=== PATIENT | female | born 1985 | race African-American/Black ===

== ENCOUNTER 2019-08-17 10:16 | Observation (INO) ==
[2019-08-17] MEDS ORDERED: LACTATED RINGER'S 1,000 ML IV PRN ×2 (10:57→13:55)
[2019-08-17 11:33] LABS: Basophils # (auto) 0.01 K/uL (0-0.2); Basophils % (auto) 0.1 %; Eosinophils # (auto) 0.05 K/uL (0-0.5); Eosinophils % (auto) 0.6 %; Hematocrit (blood only) 31.4 % (37-47); Hemoglobin 10.5 g/dL (12.0-16.0); Immature Granulocytes # (auto) 0.03 K/uL (0.00-0.02); Immature Granulocytes % (auto) 0.4 %; Lymphocytes # (auto) 1.34 K/uL (1.2-3.4); Lymphocytes % (auto) 16.5 %; Mean Corpuscular Hemoglobin 27.4 pg (25-34); Monocytes % (auto) 6.1 %; Neutrophils # (auto) 6.21 K/uL (1.4-6.5); Neutrophils % (auto) 76.3 %; Platelet Count 311 K/uL (130-400); RDW Coefficient of Variation 14.8 % (11.5-14.5); RDW Standard Deviation 44.3 fL (36.4-46.3); Red Blood Count 3.83 M/uL (4.2-5.4); White Blood Count 8.14 K/uL (4.8-10.8)
[2019-08-17 11:53] LABS: Creatinine Clr Calc Pharmacy 125.2 ml/min; Est GFR (African American) 138.2; Est GFR (Non-African American) 119.3
[2019-08-17 12:02] LABS: Mean Corpuscular Hgb Conc 33.4 g/dL (32-36)
[2019-08-17 12:39] LABS: Appearance Urine Clear (Clear); Bilirubin Urine Negative (Negative); Blood Urine Negative (Negative); Color Urine Yellow; Glucose Urine UA Negative (Negative); Ketones Urine Negative (Negative); Leukocyte Esterase Urine Negative (Negative); Nitrite Urine Negative (Negative); Protein Urine Negative (Negative); Specific Gravity Urine 1.008 (1.000-1.030); Urobilinogen Urine Negative (Negative)
[2019-08-17 12:58] LABS: Creatinine Urine Random 67.5 mg/dl; Protein Creatinine Ratio Urine 0.2 (0-0.2)
[2019-08-17] MEDS ORDERED: ONDANSETRON INJ 2 MG/ML 2 ML VIAL IV PRN (13:55)
[2019-08-17] MEDS ORDERED: BUTORPHANOL TARTRATE 1 MG/ML VIAL IV PRN (14:10)
[2019-08-17] MEDS ORDERED: OXYCODONE/ACETAMINOPHEN 5mg/325mg TAB PO PRN (14:18)
--- NOTE | 2019-08-17 14:27 | History & Physical Report ---
Date of Service August 17, 2019 Assessment & Plan (1) Elevated blood pressure affecting in second trimester, antepartum: initial PIH labs are all normal urine protein/creatinine ratio is 0.2 discussed with MFM fellow at [facility] , we will do serial BP's & PIH labs start 24 hr urine for total protein & creatinine clearance. (2) Premature uterine contractions in second trimester, antepartum: FFN is negative having lower back pain most likely from degenerating fibroids will treat with Tylenol, percocet & IV stadol. History of Present Illness Chief Complaint: Patient is a 34 yo female EDC 11/16/19 who presents to L&D with a 24 hour history of lower back pain & mild cramping in lower abdomen. So far her has been complicated by SGA documented on ultrsound at 25 weeks with EFW & AC at 2%tile. She also has multiple fibroids, the largest 2 are 13cm in posterior THIERRY and a 9 cm fibroid on the posterior fundus. She denies any bleeding or vaginal discharge changes. no urinary symptoms as well. no fever or chills. Upon evaluation in L&D, her BP's are consistently elevated in 140-150/90's. protein is trace. She denies any PIH symptoms. BP's have been 100-120/60-70 in the office. Primary Care Provider: Kristie Freedman Allergies Allergy/AdvReac Type Severity Reaction Status Date / Time corn Allergy Severe difficultly Verified 08/07/19 11:02 breathing and rash clindamycin Allergy Unknown Hives Verified 08/07/19 11:02 doxycycline Allergy Unknown Hives Verified 08/07/19 11:02 montelukast Allergy Unknown Rash Verified 08/07/19 11:02 levofloxacin [From Levaquin] Allergy skin Verified 08/07/19 11:02 burning Sulfa (Sulfonamide Allergy skin Verified 08/07/19 11:02 Antibiotics) burning Home Medications Home Medications Medication Instructions Recorded Confirmed Type doxylamine succinate 25 mg tablet 12.5 mg PO HS PRN tab 08/05/19 08/17/19 History pyridoxine (vitamin B6) 100 mg 100 mg PO BID PRN tab 08/05/19 08/17/19 History tablet ferrous sulfate 325 mg PO DAILY 08/17/19 08/17/19 History levalbuterol tartrate [Xopenex HFA] 2 inh INHALATION PRN 08/17/19 History vit-iron fum-folic ac 1 tab PO DAILY 08/17/19 08/17/19 History [ Vitamin] Patient History Medical History (Updated 08/17/19 @ 14:41 by Cortney Sim MD, FACOG) Varicella Surgical History (Updated 07/30/19 @ 14:21 by Nyasia Romero) S/P sinus surgery S/P wisdom tooth extraction Family History (Updated 07/30/19 @ 14:23 by Nyasia Romero) Grandmother (Maternal) Diabetes Father Hypertension Mother Hypercholesteremia Thyroid disease Fibroid Grandmother (Paternal) Thyroid disease Aunt Fibroid Sister Fibroid Social History (Updated 07/30/19 @ 14:24 by Nyasia Romero) Preferred Language: Guamanian Communication Ability: Effective Beliefs That Will Affect Care: None marital status: marital status details: Rachel Cazares [phone]) [phone] Current Living Situation: Spouse current occupational status: employed current occupation: Professor @ [employer] Other Information That Helps Us Care for You: No Feels Safe at Home: Yes Safety Concerns: Feels Safe At This Time Smoking Status: Never smoker Do You Dip or Chew Tobacco: No ; Hx Alcohol Use: No Hx Substance Use: No Review of Systems All systems reviewed & are unremarkable except as noted in HPI & below Physical Exam Constitutional: WD/WN, vitals as above Respiratory: normal respiratory effort, lungs clear to auscultation Cardiovascular: RRR, no murmur, no edema Gastrointestinal (Abdomen): Inspection/Auscultation: abdomen normal to inspection tender fibroid on right anterior fundus, no epigastric or RUQ tenderness Psychiatric: A+Ox3, euthymic affect Genitourinary: normal external appearance; no CVA tenderness Speculum/Bimanual Exam: normal appearance of the vagina and normal appearance of the cervix OB Exam Abdomen: + fundal height (appropriate for 26 weeks gestat ion) and + irregular contractions (mild irregular contractions) Manual OB Exam: + cervical dilation (closed), + cervical effacement (long) and + station high OB Exam Monitor Tracing: + external FHT monitor used and + external uterine monitor used cervix is long & closed and anteriorly displaced to under the pubic bone by a large posterior fibroid. Results & Data Vital Signs (Past 12 Hours) Vital Signs Temp Pulse Resp BP 08/17/19 13:13 73 152/95 H 08/17/19 12:08 74 147/101 H 08/17/19 11:58 68 149/95 H 08/17/19 11:38 68 149/97 H 08/17/19 11:28 69 152/97 H 08/17/19 11:18 71 152/99 H 08/17/19 11:08 80 136/98 08/17/19 10:48 80 144/96 H 08/17/19 10:37 75 140/91 08/17/19 10:30 97.9 F 20 Code Status & VTE Plan VTE Prophylaxis Plan VTE Prophylaxis will be ordered: No
[2019-08-17] MEDS: ACETAMINOPHEN 325 MG TAB PO PRN (14:36)
[2019-08-17 17:09] LABS: Basophils # (auto) 0.01 K/uL (0-0.2); Basophils % (auto) 0.1 %; Eosinophils # (auto) 0.06 K/uL (0-0.5); Eosinophils % (auto) 0.7 %; Hematocrit (blood only) 32.3 % (37-47); Immature Granulocytes # (auto) 0.02 K/uL (0.00-0.02); Immature Granulocytes % (auto) 0.2 %; Lymphocytes % (auto) 15.8 %; Mean Corpuscular Hgb Conc 34.1 g/dL (32-36); Mean Corpuscular Volume 82.2 fL (80-100); Mean Platelet Volume 10.3 fL (7.4-10.4); Monocytes # (auto) 0.58 K/uL (0.11-0.59); Monocytes % (auto) 6.5 %; Neutrophils # (auto) 6.81 K/uL (1.4-6.5); Neutrophils % (auto) 76.7 %; Platelet Count 317 K/uL (130-400); RDW Coefficient of Variation 14.9 % (11.5-14.5); RDW Standard Deviation 44.7 fL (36.4-46.3); Red Blood Count 3.93 M/uL (4.2-5.4); White Blood Count 8.88 K/uL (4.8-10.8)
[2019-08-17 17:20] LABS: INR 0.9 (0.9-1.1); Partial Thromboplastin Ratio 1.1; Partial Thromboplastin Time 28.6 Seconds (21.0-31.0); Prothrombin Time 9.3 Seconds (9.0-12.0)
[2019-08-17] MEDS: OXYCODONE HCL IR 5 MG TAB (IMMEDIATE RELEASE) PO PRN (18:16)
[2019-08-17 23:11] LABS: Basophils # (auto) 0.02 K/uL (0-0.2); Basophils % (auto) 0.2 %; Eosinophils # (auto) 0.08 K/uL (0-0.5); Eosinophils % (auto) 0.8 %; Hematocrit (blood only) 30.6 % (37-47); Hemoglobin 10.4 g/dL (12.0-16.0); Immature Granulocytes # (auto) 0.03 K/uL (0.00-0.02); Immature Granulocytes % (auto) 0.3 %; Lymphocytes % (auto) 15.5 %; Mean Corpuscular Hemoglobin 27.7 pg (25-34); Mean Corpuscular Volume 81.4 fL (80-100); Monocytes # (auto) 0.56 K/uL (0.11-0.59); Monocytes % (auto) 5.4 %; Neutrophils # (auto) 8.02 K/uL (1.4-6.5); Neutrophils % (auto) 77.8 %; Platelet Count 313 K/uL (130-400); RDW Coefficient of Variation 14.9 % (11.5-14.5); RDW Standard Deviation 44.2 fL (36.4-46.3); Red Blood Count 3.76 M/uL (4.2-5.4); White Blood Count 10.31 K/uL (4.8-10.8)
[2019-08-17] MEDS ORDERED: LEVALBUTEROL TARTRATE 15 GM HFA.AER.AD INH PRN (23:26)
[2019-08-17 23:28] LABS: Creatinine Clr Calc Pharmacy 118.9 ml/min; Est GFR (African American) 135.9; Est GFR (Non-African American) 117.3
[2019-08-18] MEDS: OXYCODONE HCL IR 5 MG TAB (IMMEDIATE RELEASE) PO PRN ×3 (00:03→06:38)
[2019-08-18] MEDS: ACETAMINOPHEN 325 MG TAB PO PRN ×2 (03:38→11:37)
[2019-08-18 06:27] LABS: Eosinophils # (auto) 0.07 K/uL (0-0.5); Eosinophils % (auto) 0.8 %; Hematocrit (blood only) 32.8 % (37-47); Hemoglobin 10.9 g/dL (12.0-16.0); Immature Granulocytes # (auto) 0.02 K/uL (0.00-0.02); Immature Granulocytes % (auto) 0.2 %; Lymphocytes # (auto) 1.48 K/uL (1.2-3.4); Lymphocytes % (auto) 16.3 %; Mean Corpuscular Hemoglobin 27.6 pg (25-34); Mean Corpuscular Hgb Conc 33.2 g/dL (32-36); Mean Platelet Volume 10.7 fL (7.4-10.4); Monocytes # (auto) 0.61 K/uL (0.11-0.59); Monocytes % (auto) 6.7 %; Neutrophils # (auto) 6.91 K/uL (1.4-6.5); Platelet Count 327 K/uL (130-400); RDW Coefficient of Variation 14.9 % (11.5-14.5); RDW Standard Deviation 45.1 fL (36.4-46.3); Red Blood Count 3.95 M/uL (4.2-5.4); White Blood Count 9.09 K/uL (4.8-10.8)
[2019-08-18 07:07] LABS: Creatinine Clr Calc Pharmacy 125.2 ml/min; Est GFR (African American) 138.2; Est GFR (Non-African American) 119.3
--- NOTE | 2019-08-18 08:53 | Obstetrical Progress Note ---
Date of Service August 18, 2019 Assessment & Plan (1) Premature uterine contractions in second trimester, antepartum: contractions have become only occasional now. will continue to monitor Present on Admission?: Yes (2) Elevated blood pressure affecting in second trimester, antepartum: BP has been occasionally above 150/90 but corresponds to episodes of pain. percocet is working well for the pain serial PIH labs have all been normal waiting on 24 hour urine collection whivh will be done at noon today. Present on Admission?: Yes Subjective Pain has been well controlled with percocet not feeling contractions very often now. No change in discharge no bleeding. baby very active. No PIH symptoms. Review of Systems Review of Systems: All systems reviewed & are unremarkable except as noted in HPI & below Physical Exam Gastrointestinal (Abdomen): normal bowel sounds, soft, nontender, no hepatosplenomegaly Psychiatric: A+Ox3, euthymic affect Genitourinary: OB Exam Monitor Tracing: + external FHT monitor used, + external uterine monitor used, + category I and + normal FHT variability tender at right fundus over 3cm fibroid. Results & Data Vital Signs (Past 12 Hours) Vital Signs Temp Pulse Resp BP 08/18/19 07:33 63 140/91 08/18/19 07:15 69 185/101 H 08/18/19 07:10 98.2 F 20 08/18/19 06:02 74 132/81 08/18/19 03:57 79 157/91 H 08/18/19 03:29 81 161/95 H 08/18/19 03:12 73 158/97 H 08/18/19 03:10 98.6 F 16 08/18/19 03:08 78 165/97 H 08/18/19 00:59 88 144/84 H 08/17/19 23:06 83 158/94 H 08/17/19 23:00 99.7 F H 16 PG Care Time/CCT Total # of Minutes Spent Total Time Spent with Patient: Total time spent is greater than 50% in coordination of care (as documented) at patient's floor/unit and/or counseling patient:
[2019-08-18] MEDS ORDERED: PRENATAL VITAMIN 1 TAB PO SCH (09:00)
[2019-08-18] MEDS ORDERED: FERROUS SULFATE 325 MG TAB PO SCH (09:00)
--- NOTE | 2019-08-18 11:18 | Obstetrical Progress Note ---
Date of Service August 18, 2019 Assessment & Plan (1) Premature uterine contractions in second trimester, antepartum: No evidence of PTL per Dr. Dobbs's exams. Patient now more comfortable / less contractions so exam not repeated at this time. (2) Elevated blood pressure affecting in second trimester, antepartum: Patient has evidence of gestational hypertension, and several of her measured BP values are in the severe range. This was previously discussed with MFM by Dr. Dobbs and my understanding from Dr. Dobbs is the BP was felt to be elevated due to pain, therefore not necessarily managed as gHTN. The plan in place and signed out to me was that if this patient's noon labs remain reassuring, the patient would be managed for her elevated BP via close outpatient follow up for BP checks, with percocet for home pain management. At this time the patient is comfortable but continues to have BP values at or very near severe range. Her labs have thus far not shown evidence of preeclampsia but there is a 24hr urine collection and additional serum labs planned for noon today. I do note the fetus being IUGR (MFM consult was already scheduled for this reason in early August) as well as the large fibroids which were previously suspected as the sole cause of IUGR. I am concerned for the possibility that this patient has true gHTN, possibly severe, possibly impacting her growth, and that her elevated BP cannot entirely be attributed to pain at this point. It certainly represents a significant change from her prior BP in the office. Once additional noontime information is resulted I plan to discuss again with [place]FM [place] [facility] [place] deciding on her disposition and care plan. (3) Advanced maternal age, primigravida: Following appropriate testing protocol. (4) Uterine fibroids affecting : Large fibroids including posterior THIERRY and fundal. These are believed to be the cause of her pain, as they are large enough to have a high likelihood of degeneration, and they are tender on palpation per Dr. Dobbs's earlier exams. The pain is now well managed via percocet. Given the gestational age we cannot use NSAIDs and patient is aware that pain management options are limited. She is also aware the location and size of fibroids may well preclude a vaginal delivery. Subjective I met with the patient upon assuming her care from Dr. Dobbs, approximately 10am. The patient was sitting up, on the phone (making appointment for care f/u later this week, actually) and was socializing with her and a female visitor. She was smiling, speaking fluidly, and in no evident distress. After she completed her phone call she denied any MASON, RUQ pain, vision change or edema. She states her fibroid pain is now well controlled by percocet. She feels good FM and no contractions, LOF or VB. Physical Exam Physical Exam: Gen: NAD Cor: RRR Lungs: breathing is regular and nonlabored Abd: Gravid, nontender at this time. Patient points out the location of her fundal fibroid where pain was previously present. Cvx: deferred at this time Ext: without edema. DTR 2+. Results & Data Vital Signs (Past 12 Hours) Vital Signs Temp Pulse Resp BP 08/18/19 10:35 82 159/103 H 08/18/19 07:33 63 140/91 08/18/19 07:15 69 185/101 H 08/18/19 07:10 98.2 F 20 08/18/19 06:02 74 132/81 08/18/19 03:57 79 157/91 H 08/18/19 03:29 81 161/95 H 08/18/19 03:12 73 158/97 H 08/18/19 03:10 98.6 F 16 08/18/19 03:08 78 165/97 H 08/18/19 00:59 88 144/84 H 08/17/19 23:06 83 158/94 H 08/17/19 23:00 99.7 F H 16 Laboratory Results Laboratory Results - last 24 hr 08/17/19 08/17/19 08/17/19 11:20 11:20 12:25 WBC 8.14 RBC 3.83 L Hgb 10.5 L Hct 31.4 L MCV 82.0 MCH 27.4 MCHC 33.4 RDW Std Deviation 44.3 RDW Coeff of Diamond 14.8 H Plt Count 311 MPV 10.0 Immature Gran % (Auto) 0.4 Neut % (Auto) 76.3 Lymph % (Auto) 16.5 Burke % (Auto) 6.1 Eos % (Auto) 0.6 Baso % (Auto) 0.1 Immature Gran # (Auto) 0.03 H Neut # (Auto) 6.21 Lymph # (Auto) 1.34 Burke # (Auto) 0.50 Eos # (Auto) 0.05 Baso # (Auto) 0.01 PT INR APTT PTT Ratio Creatinine 0.57 L Est Cr Clr Drug Dosing 125.2 Est GFR ( Amer) 138.2 Est GFR (Non-Af Amer) 119.3 AST 19 ALT 15 Urine Color Yellow Urine Appearance Clear Urine pH 7.0 Ur Specific [place] 1.008 Urine Protein Negative Urine Glucose (UA) Negative Urine Ketones Negative Urine Blood Negative Urine Nitrite Negative Urine Bilirubin Negative Urine Urobilinogen Negative Ur Leukocyte Esterase Negative Ur Random Creatinine U Random Total Protein Protein/Creatinin Ratio Fibronectin 08/17/19 08/17/19 08/17/19 12:25 12:25 16:55 WBC RBC Hgb Hct MCV MCH MCHC RDW Std Deviation RDW Coeff of [place] Plt Count MPV Immature Gran % (Auto) Neut % (Auto) Lymph % (Auto) Burke % (Auto) Eos % (Auto) Baso % (Auto) Immature Gran # (Auto) Neut # (Auto) Lymph # (Auto) [place] # (Auto) Eos # (Auto) Baso # (Auto) PT 9.3 INR 0.9 APTT 28.6 PTT Ratio 1.1 Creatinine Est Cr Clr Drug Dosing Est GFR ( Amer) Est GFR (Non-Af Amer) AST ALT Urine Color Urine Appearance Urine pH Ur Specific [place] Urine Protein Urine Glucose (UA) Urine Ketones Urine Blood Urine Nitrite Urine Bilirubin Urine Urobilinogen Ur Leukocyte Esterase Ur Random Creatinine 67.5 U Random Total Protein 15.0 H Protein/Creatinin Ratio 0.2 Fibronectin Negative 08/17/19 08/17/19 08/17/19 16:59 16:59 16:59 WBC 8.88 RBC 3.93 L Hgb 11.0 L Hct 32.3 L MCV 82.2 MCH 28.0 MCHC 34.1 RDW Std Deviation 44.7 RDW Coeff of [place] 14.9 H Plt Count 317 MPV 10.3 Immature Gran % (Auto) 0.2 Neut % (Auto) 76.7 Lymph % (Auto) 15.8 Burke % (Auto) 6.5 Eos % (Auto) 0.7 Baso % (Auto) 0.1 Immature Gran # (Auto) 0.02 Neut # (Auto) 6.81 H Lymph # (Auto) 1.40 Burke # (Auto) 0.58 Eos # (Auto) 0.06 Baso # (Auto) 0.01 PT INR APTT PTT Ratio Creatinine 0.55 L Est Cr Clr Drug Dosing Est GFR ( Amer) Est GFR (Non-Af Amer) AST ALT 16 Urine Color Urine Appearance Urine pH Ur Specific [place] Urine Protein Urine Glucose (UA) Urine Ketones Urine Blood Urine Nitrite Urine Bilirubin Urine Urobilinogen Ur Leukocyte Esterase Ur Random Creatinine U Random Total Protein Protein/Creatinin Ratio Fibronectin 08/17/19 08/17/19 08/17/19 16:59 23:00 23:00 WBC 10.31 RBC 3.76 L Hgb 10.4 L Hct 30.6 L MCV 81.4 MCH 27.7 MCHC 34.0 RDW Std Deviation 44.2 RDW Coeff of [place] 14.9 H Plt Count 313 MPV 10.0 Immature Gran % (Auto) 0.3 Neut % (Auto) 77.8 Lymph % (Auto) 15.5 Burke % (Auto) 5.4 Eos % (Auto) 0.8 Baso % (Auto) 0.2 Immature Gran # (Auto) 0.03 H Neut # (Auto) 8.02 H Lymph # (Auto) 1.60 Burke # (Auto) 0.56 Eos # (Auto) 0.08 Baso # (Auto) 0.02 PT INR APTT PTT Ratio Creatinine 0.60 Est Cr Clr Drug Dosing 118.9 Est GFR ( Amer) 135.9 Est GFR (Non-Af Amer) 117.3 AST 21 18 ALT 15 Urine Color Urine Appearance Urine pH Ur Specific [place] Urine Protein Urine Glucose (UA) Urine Ketones Urine Blood Urine Nitrite Urine Bilirubin Urine Urobilinogen Ur Leukocyte Esterase Ur Random Creatinine U Random Total Protein Protein/Creatinin Ratio Fibronectin 08/18/19 08/18/19 06:11 06:11 WBC 9.09 RBC 3.95 L Hgb 10.9 L Hct 32.8 L MCV 83.0 MCH 27.6 MCHC 33.2 RDW Std Deviation 45.1 RDW Coeff of [place] 14.9 H Plt Count 327 MPV 10.7 H Immature Gran % (Auto) 0.2 Neut % (Auto) 76.0 Lymph % (Auto) 16.3 Burke % (Auto) 6.7 Eos % (Auto) 0.8 Baso % (Auto) 0.0 Immature Gran # (Auto) 0.02 Neut # (Auto) 6.91 H Lymph # (Auto) 1.48 Burke # (Auto) 0.61 H Eos # (Auto) 0.07 Baso # (Auto) 0.00 PT INR APTT PTT Ratio Creatinine 0.57 L Est Cr Clr Drug Dosing 125.2 Est GFR ( Amer) 138.2 Est GFR (Non-Af Amer) 119.3 AST 17 ALT 16 Urine Color Urine Appearance Urine pH Ur Specific [place] Urine Protein Urine Glucose (UA) Urine Ketones Urine Blood Urine Nitrite Urine Bilirubin Urine Urobilinogen Ur Leukocyte Esterase Ur Random Creatinine U Random Total Protein Protein/Creatinin Ratio Fibronectin PG Care Time/CCT Total # of Minutes Spent Total Time Spent with Patient: Total time spent is greater than 50% in coordination of care (as documented) at patient's floor/unit and/or counseling patient:
[2019-08-18 12:18] LABS: Basophils # (auto) 0.01 K/uL (0-0.2); Basophils % (auto) 0.1 %; Eosinophils # (auto) 0.06 K/uL (0-0.5); Eosinophils % (auto) 0.7 %; Hematocrit (blood only) 31.1 % (37-47); Hemoglobin 10.3 g/dL (12.0-16.0); Immature Granulocytes # (auto) 0.02 K/uL (0.00-0.02); Immature Granulocytes % (auto) 0.2 %; Lymphocytes # (auto) 1.29 K/uL (1.2-3.4); Lymphocytes % (auto) 14.9 %; Mean Corpuscular Hemoglobin 27.3 pg (25-34); Mean Corpuscular Volume 82.5 fL (80-100); Mean Platelet Volume 10.2 fL (7.4-10.4); Monocytes # (auto) 0.57 K/uL (0.11-0.59); Monocytes % (auto) 6.6 %; Neutrophils # (auto) 6.73 K/uL (1.4-6.5); Neutrophils % (auto) 77.5 %; Platelet Count 296 K/uL (130-400); RDW Coefficient of Variation 14.9 % (11.5-14.5); RDW Standard Deviation 44.9 fL (36.4-46.3); Red Blood Count 3.77 M/uL (4.2-5.4); White Blood Count 8.68 K/uL (4.8-10.8)
[2019-08-18 12:25] LABS: Albumin Level 2.1 gm/dl (3.4-5.0); BUN Creatinine Ratio 11.8 (10-20); Calcium 9.3 mg/dl (8.5-10.1); Creatinine Clr Calc Pharmacy 132.1 ml/min; Est GFR (African American) 140.7; Est GFR (Non-African American) 121.4; Potassium 3.3 mmol/L (3.5-5.1)
[2019-08-18 12:28] LABS: Albumin Globulin Ratio 0.4 (0.9-2); Bilirubin,Total 0.2 mg/dl (0.2-1); Globulin 4.7 gm/dl (2.5-4.0); Total Protein 6.8 gm/dl (6.4-8.2)
[2019-08-18 12:33] LABS: Patient Weight 66.7 kg
[2019-08-18 12:33] LABS: Mean Corpuscular Hgb Conc 33.1 g/dL (32-36)
[2019-08-18 12:55] LABS: Urine Total Protein 16.1 mg/dl
[2019-08-18 12:59] LABS: Urine Creatinine 47.2 mg/dl
[2019-08-18 13:15] LABS: Creatinine Clearance Urine 108.3 ml/min (88-128); Total Protein 24 Hour Urine 281.8 mg/24 Hr (0-149.1)
[2019-08-18] MEDS ORDERED: MAGNESIUM SULFATE 40GM / WTR 1,000 ML BAG IV ONE (14:00)
[2019-08-18] MEDS ORDERED: LABETALOL HCL IV 5 MG/ML 20ML IV STA (14:00)
[2019-08-18] MEDS ORDERED: MAGNESIUM SULFATE 4GM / WTR 100 ML BAG IV ONE ×2 (14:00→14:01)
[2019-08-18] MEDS ORDERED: LABETALOL HCL IV 5 MG/ML 20ML IV ONE (14:01)
[2019-08-18] MEDS ORDERED: BETAMETH SOD PHOS/ACETATE IA 6 MG/ML IM STA (14:03)
[2019-08-18] MEDS ORDERED: MAGNESIUM SULFATE / WTR 4 GM/100 ML BAG IV ONE (14:15)
[2019-08-18] MEDS ORDERED: MAGNESIUM SULFATE / WTR 40 GM/1,000 ML BAG IV SCH (14:15)
[2019-08-18] MEDS ORDERED: LACTATED RINGER'S 1,000 ML IV SCH (14:15)
--- NOTE | 2019-08-18 14:21 | Communication Note ---
Date of Service: August 18, 2019 Patient's noon labs and BP were reviewed. No evidence of preeclampsia, 24hr urine noted to have 280mg protein. Severe range BP at the same time as patient is comfortable / rating pain a "1" but clinically in no obvious discomfort. Discussed course of care with [facility] physician fisher sponge hooking at [place], who is of the opinion that this patient should be managed as severe gestational hypertension at 27wk. She recommends magnesium infusion be started, antihypertensive be initiated, and patient transferred by ground to [place]. Celestone was offered to be given at [place], however I elected to give with patient's preparatory meds before her departure to maximize time of exposure and also out of fear that the patient may yet elope (see below). The patient was counseled on all of the above. She is agreeable to labetalol IV, magnesium IV, celestone IM, garland placement, and transfer to [facility]. However she is seriously distressed about the fact that she will need to miss a green card interview appointment for her which they both were to attend tomorrow morning in [place]. She states they must both be there at any cost. I explained that unfortunately her condition could become life threatening with little or no warning and that I cannot recommend she attend the meeting tomorrow as scheduled. She is calling the immigration office to attempt to reschedule their meeting, and her is at bedside and supportive of her doing what she needs to do medically including possibly missing the appointment, but she is fearful that if she does not present in person tomorrow that it could have a devastating effect on her 's status. This is certainly stressful for her, however I have tried to impress upon her the absolute importance of her health at this time, and have offered to provide documentation of her condition or speak to immigration officers by phone regarding her inability to attend, whichever may possibly help her.
--- NOTE | 2019-08-19 07:48 | Discharge Summary ---
Date of Service August 19, 2019 Admission HPI Per Admitting Provider Admitted 08/[address] Dobbs for management of pain from degenerating large fibroids. 27 weeks and without obstetric complaints, however noted to have hypertension after admission. Hospital Course (1) Uterine fibroids affecting : Pain successfully managed with percocet at this time. (2) Elevated blood pressure affecting in second trimester, antepartum: Despite good pain control, hypertension with severe range values persisted throughout admission. No laboratory or clinical evidence of preeclampsia. BP noted to have previously been normal in office setting. Care discussed with MFM at [facility] [facility] who recommended diagnosing and managing for severe gestational hypertension. Magnesium infusion was started, IV labetalol given for BP control, celestone first dose given, and patient transferred by ground to [facility] MFM service for further care.
== END 2019-08-18 15:00 | disposition home or self-care (01) ==
LOC: 4S1 10:16 → OPB 10:16 → 4S1 10:19